=== PATIENT | male | born 1985 | race Caucasian/White ===

== ENCOUNTER 2016-03-19 15:04 | Emergency (ER) | payer OTHER ==
[2016-03-19] MEDS ORDERED: FLUORESCEIN OPHTH 1 MG STRIP As Ordered ONE (15:24)
[2016-03-19] MEDS ORDERED: TETRACAINE 0.5% OPHTH SOLN 4ML As Ordered ONE (15:24)
[2016-03-19] MEDS ORDERED: GENTAMICIN 0.3% OPHTH SOL 5 ML BTL As Ordered ONE (16:25)
--- NOTE | 2016-03-19 16:34 | EDDOCDS ---
Nurse's Notes [facility] Name: Bjorn Powers Age: 30 yrs Sex: Male : 1985 Arrival Date: 03/19/2016 Time: 15:04 Bed I1 [facility] Diagnosis: Foreign body in other and multiple parts of external eye, right eye-Corneal Abrasion, No Foreign Body on d/c Presentation: 03/19 15:17 Presenting complaint: Patient states: states something in right eye from working on a ml6 vehicle, states flushed it at home without success. Adult Sepsis Screening: The patient does not have new or worsening altered mentation. Patient's respiratory rate is less than 22. Systolic blood pressure is greater than 100. Patient has a qSOFA score of 0- Negative Sepsis Screen. Suicide/Homicide risk assessment- the patient denies having any suicidal and/or homicidal ideations and does not present with any other emotional, behavioral or mental health complaints. 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 Transition of care: patient was not received from another setting of care. 15:17 Acuity: CARMELITA Level 4 ml6 15:17 Method Of Arrival: Walkin/Carried/Asstd ml6 Triage Assessment: 15:19 General: Appears in no apparent distress, Behavior is appropriate for age, cooperative. ml6 Pain: Denies pain. HIV screening NA for this visit Offered previously. EENT: Eyes are tearing on outer aspect of conjuctiva of right eye, iris of right eye and inner aspect of conjuctiva of right eye Sclera/Cornea are reddened in outer aspect of conjuctiva of right eye, iris of right eye and inner aspect of conjuctiva of right eye. Historical: - Allergies: PENICILLINS; - Home Meds: 1. none - PMHx: none; - PSHx: left ACL; - Social history: Smoking status: Patient states was never smoker of tobacco. No barriers to communication noted, Speaks appropriately for age. - Family history: Not pertinent. - : The pt / caregiver states he / she is not on anticoagulants. Home medication list is obtained from the patient. - Exposure Risk Screening:: None identified. Screenin:30 Screening information is obtained from the patient. Fall risk: No risks identified. [place] Assistance ADL's: requires no assistance with activities of daily living. Abuse/DV Screen: The patient / caregiver reports he/she is: not in a situation that causes fear, pain or injury. Nutritional screening: No deficits noted. Advance Directives: Currently, there is no health care proxy. There is no active DNR order. There is no living will. There is no Power of Numerical Tool Programmer. Advance directive information has not previously been placed in an [facility] medical record. Further advance directive information is declined. home support is adequate. Assessment: 16:30 General: Appears in no apparent distress, NAD slight redness noted to sclera on right. jmk denies visual changes. Vital Signs: 15:06 BP 147 / 81; Pulse 74; Resp 18 S; Temp 98.0; Pulse Ox 98% on R/A; Weight 97.52 kg (R); dd6 Height 5 ft. 10 in. (177.80 cm) (R); 15:06 Body Mass Index 30.85 (97.52 kg, 177.80 cm) dd6 Vitals: 15:06 Log In Time: March 19, 2016 at 15:04. dd6 Visual Acuity: 15:26 Left Eye Visual acuity 20/20, Pupil size 3 mm, Normal, React To Light, Reactive To ml6 Accomodation; Right Eye Visual acuity 20/20, Pupil size 3 mm, Normal, React To Light, Reactive To Accomodation; Both Eyes Visual acuity 20/20; Without Lenses; ED Course: 15:05 Patient visited by Saqib Carrero PCA. dd6 15:05 Patient moved to Waiting dd6 15:06 [facility] is Private Physician. dd6 15:08 Patient moved to Pre RCE dd6 15:18 Triage Initiated ml6 15:20 Patient moved to I10 / 23 ml6 15:39 Dianna Gonzalez PA-C is [facility]. ef1 15:39 Caitlyn Vásquez MD is Attending Physician. ef1 15:44 Patient visited by Dianna Gonzalez PA-C. ef1 16:04 [facility] is Referral Physician. ef1 16:04 Bjorn Monroy is Referral Physician. ef1 16:29 [facility] [place] Agreement was scanned into [employer] and attached to record. gjb 16:30 The patient / caregiver is instructed regarding the plan of care and ED course. [facility] 16:30 No IV's were initiated during this patient's visit. No procedures done that require k assistance. Administered Medications: 16:30 Drug: Gentamicin 2 drps [gentamicin 0.3 % eye drops (2 drps)] Route: Ophthalmic; Site: [facility] right eye; Order Results: There are currently no results for this order. Outcome: 16:04 Discharge ordered by Provider. ef1 16:30 Discharge Assessment: Patient awake, alert and oriented x 3. No cognitive and/or jmk functional deficits noted. Patient verbalized understanding of disposition instructions. patient administered narcotics - no. The following High Risk Discharge criteria are identified: None. Discharged to home ambulatory. Condition: good. Discharge instructions given to patient, Instructed on discharge instructions, follow up and referral plans. medication usage, Demonstrated understanding of instructions, medications, Pt was receptive of discharge instructions/ teaching. Prescriptions given X 1. No special radiology studies were completed. Property :Personal belongings accompany Pt. 16:33 Patient left the ED. [facility] Signatures: Shashank Alexis,RN RN Saqib Guerrero, FISHER NET FISHER NET dd6 Dianna Gonzalez, PA-C PA-C ef1 Aric Nunez, RN RN ml6 Barbara Mcfarlane MTDD
--- NOTE | 2016-03-19 16:34 | EDDOCDS ---
Physician Documentation [facility] Name: Bjorn Powers Age: 30 yrs Sex: Male : 1985 Arrival Date: 03/19/2016 Time: 15:04 Bed I1 Private [facility] Disposition: 03/19/16 16:04 Discharged to Home/Self Care. Impression: Foreign body in other and multiple parts of external eye, right eye - Corneal Abrasion, No Foreign Body on d/c. - Condition is Stable. - Discharge Instructions: Corneal Abrasion, [id number], Eye Foreign Body, [id number]. - Prescriptions for Gentamicin 0.3 % Ophthalmic Drops - instill 2 drops by OPHTHALMIC route every 4 hours for 7 days Treating Right Corneal Abrasion post Foreign Body; 1 bottle. - Medication Reconciliation, Local Pharmacy Hours form. - Follow up: [facility]; When: 1 - 2 days; Reason: Recheck today's complaints, Continuance of care. Follow up: Emergency Department; Reason: Worsening of conditions. Follow up: Bjorn Monroy; When: Call to arrange an appointment; Reason: Further diagnostic work-up, Recheck today's complaints, Continuance of care. - Problem is new. - Symptoms have improved. Historical: - Allergies: PENICILLINS; - Home Meds: 1. none - PMHx: none; - PSHx: left ACL; - Social history: Smoking status: Patient states was never smoker of tobacco. No barriers to communication noted, Speaks appropriately for age. - Family history: Not pertinent. - : The pt / caregiver states he / she is not on anticoagulants. Home medication list is obtained from the patient. - Exposure Risk Screening:: None identified. Vital Signs: 03/19 15:06 BP 147 / 81; Pulse 74; Resp 18 S; Temp 98.0; Pulse Ox 98% on R/A; Weight 97.52 kg / dd6 214.99 lbs (R); Height 5 ft. 10 in. (177.80 cm) (R); 15:06 Body Mass Index 30.85 (97.52 kg, 177.80 cm) dd6 Visual Acuity: 15:26 Left Eye Visual acuity 20/20, Pupil size 3 mm, Normal, React To Light, Reactive To ml6 Accomodation; Right Eye Visual acuity 20/20, Pupil size 3 mm, Normal, React To Light, Reactive To Accomodation; Both Eyes Visual acuity 20/20; Without Lenses; Procedures: 16:07 Foreign Body Removal: dirt, from the eye, by normal saline irrigation, The patient ef1 tolerated the removal well. MDM: 16:01 Gentamicin Drops 0.3 % 2 drps Ophthalmic once; Right eye please ordered. ef1 16:26 Financial registration complete. ghislaine 16:29 [facility] Payment Agreement was scanned into [employer] and attached to record. gjb Administered Medications: 16:30 Drug: Gentamicin 2 drps [gentamicin 0.3 % eye drops (2 drps)] Route: Ophthalmic; Site: [facility] right eye; Signatures: Shashank Alexis,RN Dianna Garg PA-C PA-C ef1 Aric Nunez RN RN ml6 Barbara Mcfarlane The chart was reviewed and I authenticate all verbal orders and agree with the evaluation and treatment provided.Attachments: 16:29 [facility] Payment Agreement gj MTDBran
--- NOTE | 2016-03-21 17:34 | EDDOCDS ---
Nurse's Notes [facility] Name: Bjorn Powers Age: 30 yrs Sex: Male : 1985 Arrival Date: 03/19/2016 Time: 15:04 Bed I1 Private [facility] Diagnosis: Foreign body in other and multiple parts of external eye, right eye-Corneal Abrasion, No Foreign Body on d/c Presentation: 03/19 15:17 Presenting complaint: Patient states: states something in right eye from working on a ml6 vehicle, states flushed it at home without success. Adult Sepsis Screening: The patient does not have new or worsening altered mentation. Patient's respiratory rate is less than 22. Systolic blood pressure is greater than 100. Patient has a qSOFA score of 0- Negative Sepsis Screen. Suicide/Homicide risk assessment- the patient denies having any suicidal and/or homicidal ideations and does not present with any other emotional, behavioral or mental health complaints. 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 Transition of care: patient was not received from another setting of care. 15:17 Acuity: CARMELITA Level 4 ml6 15:17 Method Of Arrival: Walkin/Carried/Asstd ml6 Triage Assessment: 15:19 General: Appears in no apparent distress, Behavior is appropriate for age, cooperative. ml6 Pain: Denies pain. HIV screening NA for this visit Offered previously. EENT: Eyes are tearing on outer aspect of conjuctiva of right eye, iris of right eye and inner aspect of conjuctiva of right eye Sclera/Cornea are reddened in outer aspect of conjuctiva of right eye, iris of right eye and inner aspect of conjuctiva of right eye. Historical: - Allergies: PENICILLINS; - Home Meds: 1. none - PMHx: none; - PSHx: left ACL; - Social history: Smoking status: Patient states was never smoker of tobacco. No barriers to communication noted, Speaks appropriately for age. - Family history: Not pertinent. - : The pt / caregiver states he / she is not on anticoagulants. Home medication list is obtained from the patient. - Exposure Risk Screening:: None identified. Screenin:30 Screening information is obtained from the patient. Fall risk: No risks identified. [place] Assistance ADL's: requires no assistance with activities of daily living. Abuse/DV Screen: The patient / caregiver reports he/she is: not in a situation that causes fear, pain or injury. Nutritional screening: No deficits noted. Advance Directives: Currently, there is no health care proxy. There is no active DNR order. There is no living will. There is no Power of Manager Cost. Advance directive information has not previously been placed in an [facility] medical record. Further advance directive information is declined. home support is adequate. Assessment: 16:30 General: Appears in no apparent distress, NAD slight redness noted to sclera on right. jmk denies visual changes. Vital Signs: 15:06 BP 147 / 81; Pulse 74; Resp 18 S; Temp 98.0; Pulse Ox 98% on R/A; Weight 97.52 kg (R); dd6 Height 5 ft. 10 in. (177.80 cm) (R); 15:06 Body Mass Index 30.85 (97.52 kg, 177.80 cm) dd6 Vitals: 15:06 Log In Time: March 19, 2016 at 15:04. dd6 Visual Acuity: 15:26 Left Eye Visual acuity 20/20, Pupil size 3 mm, Normal, React To Light, Reactive To ml6 Accomodation; Right Eye Visual acuity 20/20, Pupil size 3 mm, Normal, React To Light, Reactive To Accomodation; Both Eyes Visual acuity 20/20; Without Lenses; ED Course: 15:05 Patient visited by Saqib Carrero PCA. dd6 15:05 Patient moved to Waiting dd6 15:06 [facility] is Private Physician. dd6 15:08 Patient moved to Pre RCE dd6 15:18 Triage Initiated ml6 15:20 Patient moved to I10 / 23 ml6 15:39 Dian[facility] Gonzalez [facility]-C [facility]. ef1 15:39 Caitlyn Vásquez MD is Attending Physician. ef1 15:44 Patient visited by Dianna Gonzalez PA-C. ef1 16:04 [facility] is Referral Physician. ef1 16:04 Bjorn Monroy is Referral Physician. ef1 16:29 [facility] Payment Agreement was scanned into [employer] and attached to record. gjb 16:30 The patient / caregiver is instructed regarding the plan of care and ED course. k 16:30 No IV's were initiated during this patient's visit. No procedures done that require jmk assistance. 16:46 Patient name changed from Bjorn\S\\S\Buttanjana\S\ to Bjorn\S\ \S\Priya. EDMS 03/20 09:53 T-Sheet-- Draft Copy was scanned into [employer] and attached to record. gb Administered Medications: 03/19 16:30 Drug: Gentamicin 2 drps [gentamicin 0.3 % eye drops (2 drps)] Route: Ophthalmic; Site: [facility] right eye; Order Results: There are currently no results for this order. Outcome: 16:04 Discharge ordered by Provider. ef1 16:30 Discharge Assessment: Patient awake, alert and oriented x 3. No cognitive and/or jmk functional deficits noted. Patient verbalized understanding of disposition instructions. patient administered narcotics - no. The following High Risk Discharge criteria are identified: None. Discharged to home ambulatory. Condition: good. Discharge instructions given to patient, Instructed on discharge instructions, follow up and referral plans. medication usage, Demonstrated understanding of instructions, medications, Pt was receptive of discharge instructions/ teaching. Prescriptions given X 1. No special radiology studies were completed. Property :Personal belongings accompany Pt. 16:33 Patient left the ED. rufino Signatures: [facility] EDPA Shashank Alexis,RN RN Britney Singh, Reg Reg gb Saqib Carrero, PATENT PARALEGAL PATENT PARALEGAL dd6 Dianna Gonzalez, PA-C PA-C ef1 Aric uNnez, RN RN ml6 Barbara Mcfarlane Chart Complete MTDD
--- NOTE | 2016-03-21 17:34 | EDDOCDS ---
Physician Documentation [facility] Name: Bjorn Powers Age: 30 yrs Sex: Male : 1985 Arrival Date: 03/19/2016 Time: 15:04 Bed I1 [facility]: 03/19/16 16:04 Discharged to Home/Self Care. Impression: Foreign body in other and multiple parts of external eye, right eye - Corneal Abrasion, No Foreign Body on d/c. - Condition is Stable. - Discharge Instructions: Corneal Abrasion, [id number], Eye Foreign Body, Ftul-af-Xpws. - Prescriptions for Gentamicin 0.3 % Ophthalmic Drops - instill 2 drops by OPHTHALMIC route every 4 hours for 7 days Treating Right Corneal Abrasion post Foreign Body; 1 bottle. - Medication Reconciliation, Local Pharmacy Hours form. - Follow up: [facility]; When: 1 - 2 days; Reason: Recheck today's complaints, Continuance of care. Follow up: Emergency Department; Reason: Worsening of conditions. Follow up: Bjorn Monroy; When: Call to arrange an appointment; Reason: Further diagnostic work-up, Recheck today's complaints, Continuance of care. - Problem is new. - Symptoms have improved. Historical: - Allergies: PENICILLINS; - Home Meds: 1. none - PMHx: none; - PSHx: left ACL; - Social history: Smoking status: Patient states was never smoker of tobacco. No barriers to communication noted, Speaks appropriately for age. - Family history: Not pertinent. - : The pt / caregiver states he / she is not on anticoagulants. Home medication list is obtained from the patient. - Exposure Risk Screening:: None identified. Vital Signs: 03/19 15:06 BP 147 / 81; Pulse 74; Resp 18 S; Temp 98.0; Pulse Ox 98% on R/A; Weight 97.52 kg / dd6 214.99 lbs (R); Height 5 ft. 10 in. (177.80 cm) (R); 15:06 Body Mass Index 30.85 (97.52 kg, 177.80 cm) dd6 Visual Acuity: 15:26 Left Eye Visual acuity 20/20, Pupil size 3 mm, Normal, React To Light, Reactive To ml6 Accomodation; Right Eye Visual acuity 20/20, Pupil size 3 mm, Normal, React To Light, Reactive To Accomodation; Both Eyes Visual acuity 20/20; Without Lenses; Procedures: 16:07 Foreign Body Removal: dirt, from the eye, by normal saline irrigation, The patient ef1 tolerated the removal well. MDM: 16:01 Gentamicin Drops 0.3 % 2 drps Ophthalmic once; Right eye please ordered. ef1 16:26 Financial registration complete. [facility] : [facility] Payment Agreement was scanned into [employer] and attached to record. [facility] 03/20 09:53 T-Sheet-- Draft Copy was scanned into [employer] and attached to record. gb Administered Medications: 03/19 16:30 Drug: Gentamicin 2 drps [gentamicin 0.3 % eye drops (2 drps)] Route: Ophthalmic; Site: [facility] right eye; Signatures: Shashank Alexis,RN RN Britney Singh, Reg Reg gb Dianna Gonzalez, PAFlorentinC PA-C ef1 Aric Nunez RN RN ml6 Barbara Mcfarlane [facility] The chart was reviewed and I authenticate all verbal orders and agree with the evaluation and treatment provided.Attachments: 16: [facility] Payment Agreement [facility] 03/20 09:53 T-Sheet-- Draft Copy gb Chart Complete MTDD
--- NOTE | 2016-03-21 17:34 | EDDOCDS ---
Physician Documentation [facility] Name: Bjorn Powers Age: 30 yrs Sex: Male : 1985 Arrival Date: 03/19/2016 Time: 15:04 Bed I1 [facility] Disposition: 03/19/16 16:04 Discharged to Home/Self Care. Impression: Foreign body in other and multiple parts of external eye, right eye - Corneal Abrasion, No Foreign Body on d/c. - Condition is Stable. - Discharge Instructions: Corneal Abrasion, Piuj-af-Urzg, Eye Foreign Body, Jmky-[id number]-Xklw. - Prescriptions for Gentamicin 0.3 % Ophthalmic Drops - instill 2 drops by OPHTHALMIC route every 4 hours for 7 days Treating Right Corneal Abrasion post Foreign Body; 1 bottle. - Medication Reconciliation, Local Pharmacy Hours form. - Follow up: [facility]; When: 1 - 2 days; Reason: Recheck today's complaints, Continuance of care. Follow up: Emergency Department; Reason: Worsening of conditions. Follow up: Bjorn Monroy; When: Call to arrange an appointment; Reason: Further diagnostic work-up, Recheck today's complaints, Continuance of care. - Problem is new. - Symptoms have improved. Historical: - Allergies: PENICILLINS; - Home Meds: 1. none - PMHx: none; - PSHx: left ACL; - Social history: Smoking status: Patient states was never smoker of tobacco. No barriers to communication noted, Speaks appropriately for age. - Family history: Not pertinent. - : The pt / caregiver states he / she is not on anticoagulants. Home medication list is obtained from the patient. - Exposure Risk Screening:: None identified. Vital Signs: 03/19 15:06 BP 147 / 81; Pulse 74; Resp 18 S; Temp 98.0; Pulse Ox 98% on R/A; Weight 97.52 kg / dd6 214.99 lbs (R); Height 5 ft. 10 in. (177.80 cm) (R); 15:06 Body Mass Index 30.85 (97.52 kg, 177.80 cm) dd6 Visual Acuity: 15:26 Left Eye Visual acuity 20/20, Pupil size 3 mm, Normal, React To Light, Reactive To ml6 Accomodation; Right Eye Visual acuity 20/20, Pupil size 3 mm, Normal, React To Light, Reactive To Accomodation; Both Eyes Visual acuity 20/20; Without Lenses; Procedures: 16:07 Foreign Body Removal: dirt, from the eye, by normal saline irrigation, The patient ef1 tolerated the removal well. MDM: 16:01 Gentamicin Drops 0.3 % 2 drps Ophthalmic once; Right eye please ordered. ef1 16:26 Financial registration complete. [facility] : [facility] Payment Agreement was scanned into [employer] and attached to record. [facility] 03/20 09:53 T-Sheet-- Draft Copy was scanned into [employer] and attached to record. gb Administered Medications: 03/19 16:30 Drug: Gentamicin 2 drps [gentamicin 0.3 % eye drops (2 drps)] Route: Ophthalmic; Site: [facility] right eye; Signatures: Shashank Alexis,RN RN Britney Singh, Reg Reg gb Dianna Gonzalez, PAFlorentinC PA-C ef1 Aric uNnez RN RN ml6 Barbara Mcfarlane [facility] The chart was reviewed and I authenticate all verbal orders and agree with the evaluation and treatment provided.Attachments: 16: [facility] Payment Agreement [facility] 03/20 09:53 T-Sheet-- Draft Copy gb Chart Complete MTDD
== END 2016-03-19 16:33 | disposition home or self-care (01) ==
LOC: M ED 15:04
DX: S05.01XA Injury of conjunctiva and corneal abrasion without foreign body, right eye, initial encounter (principal); X58.XXXA Exposure to other specified factors, initial encounter; Y92.89 Other specified places as the place of occurrence of the external cause; Y93.89 Activity, other specified; Y99.8 Other external cause status; Z88.0 Allergy status to penicillin